=== PATIENT | male | born 1960 | race Caucasian/White ===

== ENCOUNTER 2020-08-05 20:37 | Emergency (ER) | payer OTHER ==
[2020-08-05] MEDS ORDERED: Morphine 4 MG/ML VIAL ONE ×2 (20:58→23:30)
[2020-08-05] MEDS ORDERED: Ketorolac Tromethamine 30 MG/ML VIAL ONE (20:58)
[2020-08-05 21:04] LABS: #Basophils 0.1 thou/uL (0.0-0.2); #Eosinphils 0.4 thou/uL (0.0-0.7); #Lymphocytes 3.5 thou/uL (1.20-3.40); #Monocytes 0.6 thou/uL (0.11-0.59); #Neutrophils 3.7 thou/uL (1.40-6.50); %Basophils 1.2 % (0.0-1.0); %Eosinophils 5.1 % (0.0-10.0); %Lymphocytes 42.2 % (21.0-51.0); %Monocytes 7.1 % (0.0-10.0); %Neutrophils 44.5 % (42.0-75.0); Hemoglobin 14.9 g/dL (14.0-18.0); Mean Corpuscular HGB CONC 32.3 g/dL (32.0-36.0); Mean Corpuscular Hemoglobin 30.1 pg (27.0-31.0); Mean Corpuscular Volume 93.1 fL (78.0-98.0); Mean Platelet Volume 5.7 fL (7.4-10.4); Platelet Count 333 thou/uL (130-400); Red Blood Cell (RBC) Count 4.96 mill/uL (4.70-6.10); White Blood Cell (WBC) Count 8.3 thou/uL (4.8-10.8)
[2020-08-05] MEDS ORDERED: diphenhydrAMINE 50 MG/ML VIAL ONE (21:04)
[2020-08-05 21:14] LABS: ALT (SGPT) 16 U/L (8-55); AST (SGOT) 16 U/L (5-34); Albumin 4.5 g/dL (3.4-4.8); Alkaline Phosphatase 58 U/L (40-110); Anion Gap 14 mmol/L (10-20); BUN (Urea Nitrogen) 18 mg/dL (8.4-25.7); Bilirubin, Total 0.4 mg/dL (0.2-1.2); Calc. Creatinine Clearance 0 mL/min (70-130); Calcium 9.2 mg/dL (7.8-10.44); Carbon Dioxide 26 mmol/L (23-31); Chloride 107 mmol/L (98-107); Globulin 3.1 g/dL (2.4-3.5); Glucose 108 mg/dL (80-115); Lipase 35 U/L (8-78); Potassium 4.1 mmol/L (3.5-5.1); Protein, Total 7.6 g/dL (5.8-8.1); Sodium 143 mmol/L (136-145)
--- NOTE | 2020-08-05 21:57 | CT ---
CT ABDOMEN AND PELVIS WITHOUT CONTRAST: Date: 08-05-[address] of the abdomen and pelvis was performed for evaluation of right flank pain. No prior scans were available for comparison. FINDINGS: The lung bases are clear. The liver, spleen, pancreas, adrenal glands and abdominal aorta were unrema rkable. Tiny gallstones were noted in the gallbladder. The main finding on the study is a proximal right ureteral calculus near the UPJ. It measures about 9 mm in craniocaudal extent and approximately 7 mm wide. It is causing only mild hydronephrosis at thi s time. There is a large slightly lobed cyst in the left kidney that measures about 6.9 x 4.4 cm. It would be good to do an elective ultrasound on it to make sure that this is purely cystic, but its int ernal CT numbers are low and suggest such. There are several nonobstructing calculi in the lower pole of the left kidney. The bowel shows no dilation, wall thickening or inflammatory change. No free air or free fluid is pre sent. CT of the pelvis shows a large prostate that is a bit over 5 cm wide. Bilateral fat filled inguinal h ernias are noted which are probably of no current concern. An incidental finding is slight crowding o f the thecal sac at L3-4 and L4-5 due to a slightly small canal and some mild facet and ligamentous h ypertrophy. IMPRESSION: 1. Proximal right ureteral calculus near the UPJ causing mild right hydronephrosis. Craniocaudal dime nsion of 9 mm and approximately 7 mm wide. 2. Tiny gallstones. 3. Large prostate. 4. Large bilobed left renal cyst. Elective ultrasound recommended to be sure this is purely cystic. 5. Several tiny non-obstructing calculi in the lower pole of the left kidney. 6. Bilateral fat filled inguinal hernias. Initial findings discussed with Dr. Panchal at 2123 on 08-05-2020. POS: HOME
[2020-08-05 22:32] LABS: Bilirubin Negative (Negative); Blood, Urine Moderate (Negative); Clarity Clear (Clear); Glucose, Urine (Dipstick) Negative (Negative); Ketone, Urine Negative (Negative); Leukocyte Negative (Negative); Nitrite Negative (Negative); Protein, Urine (Dipstick) Negative (Neg-Trace); Specific Gravity, Urine 1.015 (1.005-1.030); Urobilinogen 0.2 mg/dL (Less than 2)
[2020-08-05 22:47] LABS: Bacteria/HPF Rare-Few HPF (None Seen); Squamous Epithelial None Seen HPF (0-3); WBC/HPF 0-3 HPF (0-3)
[2020-08-06] MEDS ORDERED: Morphine 4 MG/ML VIAL ONE (04:21)
== END 2020-08-06 04:34 ==
LOC: BURERS 20:37
DX: N13.2 Hydronephrosis with renal and ureteral calculous obstruction (principal); N17.9 Acute kidney failure, unspecified; I12.9 Hypertensive chronic kidney disease with stage 1 through stage 4 chronic kidney disease, or unspecified chronic kidney disease; N18.9 Chronic kidney disease, unspecified; N40.0 Benign prostatic hyperplasia without lower urinary tract symptoms; K21.9 Gastro-esophageal reflux disease without esophagitis; Z86.73 Personal history of transient ischemic attack (TIA), and cerebral infarction without residual deficits; Z79.899 Other long term (current) drug therapy
CPT/HCPCS: 74176; 80053; 81003; 81015; 83690; 85025; 96374; 96375; 96376; J1200; J1885; J2270

== ENCOUNTER 2021-04-20 10:12 | Emergency (ER) | payer OTHER ==
[2021-04-20] MEDS ORDERED: Aspirin Chewable 81 MG TAB ONE (10:35)
[2021-04-20] MEDS ORDERED: Lisinopril 20 MG TAB ONE (10:35)
[2021-04-20] MEDS ORDERED: Nitroglycerin 0.4 MG TAB 1 EACH ONE (10:35)
[2021-04-20 10:39] LABS: #Basophils 0.1 thou/uL (0.0-0.2); #Eosinphils 0.3 thou/uL (0.0-0.7); #Lymphocytes 2.3 thou/uL (1.20-3.40); #Monocytes 0.5 thou/uL (0.11-0.59); #Neutrophils 3.8 thou/uL (1.40-6.50); %Eosinophils 4.6 % (0.0-10.0); %Lymphocytes 32.5 % (21.0-51.0); %Monocytes 7.7 % (0.0-10.0); %Neutrophils 54.2 % (42.0-75.0); Hemoglobin 14.7 g/dL (14.0-18.0); Mean Corpuscular HGB CONC 33.1 g/dL (32.0-36.0); Mean Corpuscular Hemoglobin 30.7 pg (27.0-31.0); Mean Corpuscular Volume 92.9 fL (78.0-98.0); Mean Platelet Volume 5.1 fL (7.4-10.4); Platelet Count 305 thou/uL (130-400); RBC Distribution Width 12.3 % (11.5-14.5); Red Blood Cell (RBC) Count 4.78 mill/uL (4.70-6.10); White Blood Cell (WBC) Count 7.1 thou/uL (4.8-10.8)
[2021-04-20 10:54] LABS: ALT (SGPT) 12 U/L (8-55); AST (SGOT) 14 U/L (5-34); Albumin 4.3 g/dL (3.4-4.8); Alkaline Phosphatase 61 U/L (40-110); Anion Gap 15 mmol/L (10-20); BUN (Urea Nitrogen) 15 mg/dL (8.4-25.7); Bilirubin, Total 0.9 mg/dL (0.2-1.2); CK (CPK) 86 U/L (30-200); Calc. Creatinine Clearance 0 mL/min (70-130); Calcium 9.5 mg/dL (7.8-10.44); Carbon Dioxide 25 mmol/L (23-31); Chloride 107 mmol/L (98-107); Globulin 2.8 g/dL (2.4-3.5); Glucose 97 mg/dL (80-115); Potassium 4.5 mmol/L (3.5-5.1); Protein, Total 7.1 g/dL (5.8-8.1); Sodium 142 mmol/L (136-145)
[2021-04-20 14:10] LABS: SARS-CoV-2 NAA Rapid Test Not Detected (NotDetected)
== END 2021-04-20 20:00 | disposition short-term general hospital (02) ==
LOC: BURERS 10:12
DX: R07.9 Chest pain, unspecified (principal); R00.1 Bradycardia, unspecified; I10 Essential (primary) hypertension; K21.9 Gastro-esophageal reflux disease without esophagitis; Z86.73 Personal history of transient ischemic attack (TIA), and cerebral infarction without residual deficits; Z20.822 Contact with and (suspected) exposure to COVID-19
CPT/HCPCS: 71045; 80053; 82550; 84484; 85025; 93005; U0002

== ENCOUNTER 2022-05-31 14:37 | Emergency (ER) | payer OTHER ==
[2022-05-31] MEDS ORDERED: Iopamidol 370 76% 100 ML VIAL FS ONE (14:38)
[2022-05-31 14:54] LABS: #Basophils 0.1 thou/uL (0.0-0.2); #Eosinphils 0.2 thou/uL (0.0-0.7); #Lymphocytes 2.1 thou/uL (1.20-3.40); #Monocytes 0.5 thou/uL (0.11-0.59); #Neutrophils 4.6 thou/uL (1.40-6.50); %Basophils 1.1 % (0.0-1.0); %Eosinophils 2.6 % (0.0-10.0); %Lymphocytes 28.5 % (21.0-51.0); %Monocytes 7.1 % (0.0-10.0); %Neutrophils 60.7 % (42.0-75.0); Hemoglobin 14.8 g/dL (14.0-18.0); Mean Corpuscular HGB CONC 33.2 g/dL (32.0-36.0); Mean Corpuscular Hemoglobin 31.1 pg (27.0-31.0); Mean Corpuscular Volume 93.5 fL (78.0-98.0); Platelet Count 329 thou/uL (130-400); RBC Distribution Width 12.7 % (11.5-14.5); Red Blood Cell (RBC) Count 4.77 mill/uL (4.70-6.10); White Blood Cell (WBC) Count 7.5 thou/uL (4.8-10.8)
[2022-05-31 15:07] LABS: PTT 29.7 sec (22.9-36.1); Prothrombin Time 12.9 sec (12.0-14.7)
[2022-05-31 15:13] LABS: ALT (SGPT) 19 U/L (8-55); AST (SGOT) 22 U/L (5-34); Albumin 4.7 g/dL (3.4-4.8); Alkaline Phosphatase 52 U/L (40-110); Anion Gap 15 mmol/L (10-20); BUN (Urea Nitrogen) 14 mg/dL (8.4-25.7); Bilirubin, Total 0.9 mg/dL (0.2-1.2); Calc. Creatinine Clearance 0 mL/min (70-130); Calcium 9.7 mg/dL (7.8-10.44); Carbon Dioxide 24 mmol/L (23-31); Chloride 106 mmol/L (98-107); Estimated GFR 50; Globulin 2.6 g/dL (2.4-3.5); Glucose 115 mg/dL (80-115); Potassium 3.8 mmol/L (3.5-5.1); Protein, Total 7.3 g/dL (5.8-8.1); Sodium 141 mmol/L (136-145)
[2022-05-31 15:56] LABS: Bilirubin Negative (Negative); Blood, Urine Negative (Negative); Clarity Clear (Clear); Glucose, Urine (Dipstick) Negative (Negative); Ketone, Urine Negative (Negative); Leukocyte Negative (Negative); Nitrite Negative (Negative); Protein, Urine (Dipstick) Negative (Neg-Trace); Urobilinogen 0.2 mg/dL (Less than 2); pH, Urine 6.5 (5.0-9.0)
[2022-05-31] MEDS ORDERED: Aspirin Chewable 81 MG TAB ONE (16:38)
== END 2022-05-31 17:04 | disposition short-term general hospital (02) ==
LOC: BURERS 14:37
DX: G45.9 Transient cerebral ischemic attack, unspecified (principal); K21.9 Gastro-esophageal reflux disease without esophagitis; I12.9 Hypertensive chronic kidney disease with stage 1 through stage 4 chronic kidney disease, or unspecified chronic kidney disease; N18.9 Chronic kidney disease, unspecified
CPT/HCPCS: 0042T; 36416; 70450; 70496; 70498; 71045; 80053; 81003; 84484; 85025; 85610; 85730; 93005; 94760; 96360; Q9967

== ENCOUNTER 2023-02-14 17:17 | Emergency (ER) | payer OTHER ==
[2023-02-14] MEDS ORDERED: Prochlorperazine 10 MG/2 ML VIAL ONE (17:34)
[2023-02-14] MEDS ORDERED: Ketorolac Tromethamine 30 MG/ML VIAL ONE (17:34)
[2023-02-14] MEDS ORDERED: Metoclopramide HCl 10 MG/2 ML VIAL ONE (17:43)
[2023-02-14] MEDS ORDERED: Ondansetron PF 4 MG/2 ML Vial ONE (18:46)
[2023-02-14] MEDS ORDERED: Haloperidol Lactate 5 MG/ML VIAL ONE (18:46)
[2023-02-14 19:22] LABS: #Basophils 0.1 thou/uL (0.0-0.2); #Lymphocytes 2.4 thou/uL (1.20-3.40); #Monocytes 0.7 thou/uL (0.11-0.59); #Neutrophils 11.5 thou/uL (1.40-6.50); %Basophils 0.5 % (0.0-1.0); %Eosinophils 0.2 % (0.0-10.0); %Lymphocytes 16.3 % (21.0-51.0); %Monocytes 4.6 % (0.0-10.0); %Neutrophils 78.5 % (42.0-75.0); Hemoglobin 14.3 g/dL (14.0-18.0); Mean Corpuscular HGB CONC 34.7 g/dL (32.0-36.0); Mean Corpuscular Hemoglobin 31.5 pg (27.0-31.0); Mean Corpuscular Volume 90.7 fl (78.0-98.0); Mean Platelet Volume 5.8 fL (7.4-10.4); Platelet Count 358 10x3/uL (130-400); RBC Distribution Width 12.3 % (11.5-14.5); Red Blood Cell (RBC) Count 4.53 mill/uL (4.70-6.10); White Blood Cell (WBC) Count 14.7 10x3/uL (4.8-10.8)
[2023-02-14 19:42] LABS: ALT (SGPT) 21 U/L (8-55); AST (SGOT) 22 U/L (5-34); Albumin 4.4 g/dL (3.4-4.8); Alkaline Phosphatase 59 U/L (40-110); Anion Gap 16 mmol/L (10-20); BUN (Urea Nitrogen) 22 mg/dL (8.4-25.7); Bilirubin, Total 0.5 mg/dL (0.2-1.2); Calc. Creatinine Clearance 0 mL/min (70-130); Calcium 9.1 mg/dL (7.8-10.44); Carbon Dioxide 23 mmol/L (23-31); Chloride 108 mmol/L (98-107); Estimated GFR 52; Globulin 2.7 g/dL (2.4-3.5); Glucose 134 mg/dL (80-115); Lipase 123 U/L (8-78); Protein, Total 7.1 g/dL (5.8-8.1); Sodium 143 mmol/L (136-145)
== END 2023-02-14 19:25 | disposition home or self-care (01) ==
LOC: BURERS 17:17
DX: R11.0 Nausea (principal); R06.6 Hiccough
CPT/HCPCS: 74019; 80053; 83690; 85025; 96372; 96374; 96375; J0780; J1630; J1885; J2405; J2765

== ENCOUNTER 2024-02-12 11:23 | Emergency (ER) | payer OTHER ==
[2024-02-12 12:04] LABS: #Basophils 0.1 thou/uL (0.0-0.2); #Eosinphils 0.2 thou/uL (0.0-0.7); #Lymphocytes 1.7 thou/uL (1.20-3.40); #Monocytes 0.5 thou/uL (0.11-0.59); #Neutrophils 3.5 thou/uL (1.40-6.50); %Eosinophils 3.8 % (0.0-10.0); %Lymphocytes 28.4 % (21.0-51.0); %Monocytes 8.6 % (0.0-10.0); %Neutrophils 58.2 % (42.0-75.0); Hematocrit 40.4 % (42.0-52.0); Mean Corpuscular HGB CONC 34.6 g/dL (32.0-36.0); Mean Corpuscular Hemoglobin 30.2 pg (27.0-31.0); Mean Corpuscular Volume 87.3 fl (78.0-98.0); Mean Platelet Volume 5.2 fL (7.4-10.4); Platelet Count 282 10x3/uL (130-400); RBC Distribution Width 11.8 % (11.5-14.5); Red Blood Cell (RBC) Count 4.62 mill/uL (4.70-6.10); White Blood Cell (WBC) Count 6.1 10x3/uL (4.8-10.8)
[2024-02-12] MEDS ORDERED: diphenhydrAMINE 50 MG/ML VIAL ONE (12:06)
[2024-02-12] MEDS ORDERED: Metoclopramide HCl 10 MG (2 mL) VIAL ONE (12:07)
[2024-02-12] MEDS ORDERED: Hydrochlorothiazide 25 MG TAB ONE (12:07)
[2024-02-12 12:13] LABS: Bilirubin Negative (Negative); Blood, Urine Negative (Negative); Clarity Clear (Clear); Glucose, Urine (Dipstick) Negative (Negative); Ketone, Urine Negative (Negative); Leukocyte Negative (Negative); Nitrite Negative (Negative); Protein, Urine (Dipstick) Negative (Neg-Trace); Urobilinogen 0.2 mg/dL (Less than 2)
[2024-02-12 12:21] LABS: Bacteria/HPF Rare-Few HPF (None Seen); CAUTI Indications for Culture Dysuria,urgency,freq; RBC/HPF 0-3 HPF (0-3); Squamous Epithelial None Seen HPF (0-3); WBC/HPF 0-3 HPF (0-3)
[2024-02-12 12:22] LABS: Urine Culture Reflex No No
[2024-02-12 12:24] LABS: ALT (SGPT) 17 U/L (8-55); AST (SGOT) 17 U/L (5-34); Albumin 4.2 g/dL (3.4-4.8); Alkaline Phosphatase 52 U/L (40-110); Anion Gap 12 mmol/L (10-20); BUN (Urea Nitrogen) 13 mg/dL (8.4-25.7); Calc. Creatinine Clearance 0 mL/min (70-130); Calcium 9.1 mg/dL (7.8-10.44); Carbon Dioxide 23 mmol/L (23-31); Chloride 109 mmol/L (98-107); Estimated GFR 56; Globulin 2.4 g/dL (2.4-3.5); Glucose 109 mg/dL (80-115); Potassium 3.6 mmol/L (3.5-5.1); Protein, Total 6.6 g/dL (5.8-8.1); Sodium 140 mmol/L (136-145)
[2024-02-12 12:25] LABS: Troponin I Less than 0.010 ng/mL (< 0.028)
== END 2024-02-12 12:59 | disposition home or self-care (01) ==
LOC: BURERS 11:23
DX: R51.9 Headache, unspecified (principal); I12.9 Hypertensive chronic kidney disease with stage 1 through stage 4 chronic kidney disease, or unspecified chronic kidney disease; N18.9 Chronic kidney disease, unspecified; Z86.73 Personal history of transient ischemic attack (TIA), and cerebral infarction without residual deficits; Z79.899 Other long term (current) drug therapy
CPT/HCPCS: 70450; 71045; 80053; 81001; 84484; 85025; 93005; 96374; 96375; J1200; J2765

== ENCOUNTER 2025-05-30 15:42 | Emergency (ER) | payer OTHER | END 2025-05-30 16:17 | disposition home or self-care (01) | LOC: BURERS 15:42 | DX: S63.601A Unspecified sprain of right thumb, initial encounter (principal); K21.9 Gastro-esophageal reflux disease without esophagitis; I10 Essential (primary) hypertension; Z86.73 Personal history of transient ischemic attack (TIA), and cerebral infarction without residual deficits; W18.30XA Fall on same level, unspecified, initial encounter | CPT/HCPCS: 99283 ==